=== PATIENT | male | born 1955 | race Two or more races ===

== ENCOUNTER → 2017-03-15 | Emergency (ER) | payer OTHER ==
[~2017-03-15] VITALS: Ht 170.2 cm; Wt 79.4 kg
[~2017-03-15] MED LIST: BELSOMRA PO; CIPRO500 MG PO; CLONAZEPAM2 MG; Intestinex CAP PO; KETO10TA2 PO; NIFEDIPINE XL30 MG PO; OPTIMAL D350000 UNIT; SYNTHROID50 MCG; ZITHROMAX500 MG PO; ZOLPIDEM TARTRA10 MG PO
== END | disposition home or self-care (01) ==
LOC: ER 17:51
DX: R59.0 Localized enlarged lymph nodes (principal)

== ENCOUNTER 2017-09-14 07:34 | Outpatient (CLI) | payer OTHER | END 2017-09-14 07:36 | disposition home or self-care (01) | LOC: SONOGRAMA 07:34 → MAMO-SONO 08:15 | DX: R10.13 Epigastric pain (principal) ==

== ENCOUNTER 2017-09-26 07:59 | Outpatient (CLI) | payer OTHER | END 2017-09-26 17:00 | disposition home or self-care (01) | LOC: TOM 07:59 | DX: R10.9 Unspecified abdominal pain (principal); N23 Unspecified renal colic ==

== ENCOUNTER 2018-03-06 16:31 | Emergency (ER) | payer OTHER ==
[~2018-03-06] VITALS: Ht 170.2 cm; Wt 79.4 kg
[2018-03-11] MEDS ORDERED: XANAX XR0.5 MG (13:06)
== END 2018-03-06 22:45 | disposition home or self-care (01) ==
LOC: ER 16:31
DX: J40 Bronchitis, not specified as acute or chronic (principal); J32.8 Other chronic sinusitis; B34.9 Viral infection, unspecified

== ENCOUNTER → 2018-03-11 | Emergency (ER) | payer OTHER ==
[~2018-03-11] VITALS: Ht 170.2 cm; Wt 76.2 kg
[~2018-03-11] MED LIST changes: +NEURONTIN300 MG; +XANAX XR0.5 MG
== END | disposition left against medical advice (07) ==
LOC: ER 12:48
DX: B34.9 Viral infection, unspecified (principal)

== ENCOUNTER 2018-03-19 14:14 | Emergency (ER) | payer OTHER ==
[~2018-03-19] VITALS: Ht 167.6 cm; Wt 81.6 kg
[~2018-03-19 14:14] MED LIST changes: -NEURONTIN300 MG
[2018-03-19] MEDS ORDERED: NEURONTIN300 MG (14:25)
== END 2018-03-19 17:03 | disposition home or self-care (01) ==
LOC: ER 14:14
DX: G25.2 Other specified forms of tremor (principal); R51 Headache; F06.4 Anxiety disorder due to known physiological condition

== ENCOUNTER 2018-12-27 12:50 | Outpatient (CLI) | payer OTHER ==
[~2018-12-27 12:50] MED LIST changes: +NEURONTIN300 MG
== END 2018-12-27 16:35 | disposition home or self-care (01) ==
LOC: RAD 12:50
DX: R07.89 Other chest pain (principal)

== ENCOUNTER 2019-09-05 12:49 | Outpatient (CLI) | payer OTHER | END 2019-09-05 12:56 | disposition home or self-care (01) | LOC: RAD 12:49 | PROVIDERS: ATTEND Physical Medicine & Rehabilitation | DX: M17.12 Unilateral primary osteoarthritis, left knee (principal); M54.2 Cervicalgia; M75.32 Calcific tendinitis of left shoulder ==

== ENCOUNTER 2019-09-11 07:06 | Outpatient (CLI) | payer OTHER | END 2019-09-11 07:18 | disposition home or self-care (01) | LOC: NUCLEAR 07:06 | PROVIDERS: ATTEND Internal Medicine Cardiovascular Disease | DX: M13.0 Polyarthritis, unspecified (principal) | CPT/HCPCS: 78315; A9503 ==

== ENCOUNTER 2019-09-19 12:52 | Outpatient (CLI) | payer OTHER | END 2019-09-19 12:58 | disposition home or self-care (01) | LOC: SONOGRAMA 12:52 → MAMO-SONO 13:15 | PROVIDERS: ATTEND Physical Medicine & Rehabilitation | DX: M75.112 Incomplete rotator cuff tear or rupture of left shoulder, not specified as traumatic (principal) ==

== ENCOUNTER 2020-02-23 16:25 | Outpatient (CLI) | payer OTHER | END 2020-02-23 16:37 | disposition home or self-care (01) | LOC: RAD 16:25 | PROVIDERS: ATTEND Psychiatry & Neurology Clinical Neurophysiology | DX: M41.87 Other forms of scoliosis, lumbosacral region (principal); M47.20 Other spondylosis with radiculopathy, site unspecified ==

== ENCOUNTER 2020-04-12 13:32 | Emergency (ER) | payer OTHER ==
[~2020-04-12] VITALS: Ht 152.4 cm; Wt 83.5 kg
[2020-04-12] MEDS ORDERED: PEPCID20 MG PO (22:09)
[2020-04-12] MEDS ORDERED: FLAGYL500MG PO (22:09)
[2020-04-12] MEDS ORDERED: DICY20TA PO (22:09)
[2020-04-12] MEDS ORDERED: CIPRO500 MG PO (22:09)
== END 2020-04-12 22:19 | disposition home or self-care (01) ==
LOC: ER 13:32
DX: K57.92 Diverticulitis of intestine, part unspecified, without perforation or abscess without bleeding (principal); Z03.818 Encounter for observation for suspected exposure to other biological agents ruled out

== ENCOUNTER 2021-06-07 11:29 | Outpatient (CLI) | payer OTHER ==
[~2021-06-07 11:29] MED LIST changes: +DICY20TA PO; +FLAGYL500MG PO; +PEPCID20 MG PO
== END 2021-06-07 11:32 | disposition home or self-care (01) ==
LOC: RAD 11:29
PROVIDERS: ATTEND General Practice
DX: R07.9 Chest pain, unspecified (principal); M25.551 Pain in right hip; M25.552 Pain in left hip

== ENCOUNTER 2021-06-08 10:00 | Outpatient (CLI) | payer OTHER | END 2021-06-08 10:04 | disposition home or self-care (01) | LOC: SONOGRAMA 10:00 | PROVIDERS: ATTEND General Practice | DX: E06.9 Thyroiditis, unspecified (principal) ==

== ENCOUNTER 2022-05-26 13:18 | Outpatient (CLI) | payer OTHER | END 2022-05-26 13:24 | disposition home or self-care (01) | LOC: RAD 13:18 | PROVIDERS: ATTEND General Practice | DX: M54.2 Cervicalgia (principal) ==

== ENCOUNTER 2023-10-31 12:25 | Outpatient (CLI) | payer OTHER | END 2023-10-31 12:33 | disposition home or self-care (01) | LOC: SONOGRAMA 12:25 | PROVIDERS: ATTEND Internal Medicine Gastroenterology | DX: R10.13 Epigastric pain (principal) ==

== ENCOUNTER 2024-02-02 00:03 | Emergency (ER) | payer OTHER ==
[~2024-02-02] VITALS: Ht 175.3 cm; Wt 81.6 kg
[2024-02-02] MEDS ORDERED: HYOSCYAMINE SULFATE 0.125 MG TAB.SUBL SL ONE (03:00)
[2024-02-02 03:15] LABS: HEMATOCRIT 44.1 % (39.0-48.0); HEMOGLOBIN 15.3 g/dL (13-16.00); MEAN CELL VOLUME 91.2 fL (80.0-100.00); MEAN CORPUSCULAR HEMOGLOBIN 31.6 pg (27.00-32.0); MEAN CORPUSCULAR HGB CONC 34.7 g/dl (32.0-36.0); PLATELET COUNT 183 K/uL (150-450); RED BLOOD COUNT 4.84 M/uL (4.00-6.00); RED CELL DISTRIBUTION WIDTH 13.1 % (11.5-14.5)
== END 2024-02-02 04:52 | disposition home or self-care (01) ==
LOC: ER 00:05
DX: R14.3 Flatulence (principal); R14.1 Gas pain; R14.2 Eructation; Z88.0 Allergy status to penicillin

== ENCOUNTER 2024-04-09 07:06 | Outpatient (CLI) | payer OTHER | END 2024-04-09 07:07 | disposition home or self-care (01) | LOC: NUCLEAR 07:06 | PROVIDERS: ATTEND Internal Medicine Gastroenterology | DX: K30 Functional dyspepsia (principal) | CPT/HCPCS: 78264; A9541 ==

== ENCOUNTER 2024-07-08 12:19 | Emergency (ER) | payer OTHER ==
[~2024-07-08] VITALS: Ht 170.2 cm; Wt 85.7 kg
[2024-07-08] MEDS ORDERED: ECOTRIN81 MG (13:31)
[2024-07-08] MEDS ORDERED: PANTOPRAZOLE SO40 M2 PO (13:32)
[2024-07-08] MEDS ORDERED: ATORVASTATIN CA10 MG PO (13:33)
[2024-07-08 14:52] LABS: HEMATOCRIT 45.4 % (39.0-48.0); HEMOGLOBIN 15.2 g/dL (13-16.00); MEAN CELL VOLUME 91.7 fL (80.0-100.00); MEAN CORPUSCULAR HEMOGLOBIN 30.6 pg (27.00-32.0); MEAN CORPUSCULAR HGB CONC 33.4 g/dl (32.0-36.0); PLATELET COUNT 151 K/uL (150-450); RED BLOOD COUNT 4.95 M/uL (4.00-6.00)
[2024-07-08 15:12] LABS: INR 0.99; PARTIAL THROMBOPLASTIN TIME 28.4 SECONDS (22.0-34.0); PROTHROMBIN TIME 10.8 SECONDS (9.0-11.5)
[2024-07-08 15:21] LABS: ALBUMIN 3.5 gm/dL (3.4-5.0); BILIRUBIN TOTAL 1.06 mg/dL (0.3-1.2); CALCIUM 9.5 mg/dL (8.5-10.1); CREATININE SERUM 1.2 mg/dL (0.70-1.30); GFR 60.39; GLOBULINA 4.2 G/DL (2.4-3.5); POTASSIUM 4.34 mEq/L (3.5-5.1); TOTAL PROTEIN 7.7 gm/dL (6.4-8.2)
== END 2024-07-08 19:05 | disposition home or self-care (01) ==
LOC: ER 12:20
PROVIDERS: Emergency Medicine
DX: F41.9 Anxiety disorder, unspecified (principal); R07.89 Other chest pain; R53.81 Other malaise; Z88.0 Allergy status to penicillin

== ENCOUNTER 2024-12-24 09:35 | Emergency (ER) | payer OTHER ==
[~2024-12-24] VITALS: Ht 170.2 cm; Wt 81.2 kg
[~2024-12-24 09:35] MED LIST changes: +ATORVASTATIN CA10 MG PO; +ECOTRIN81 MG; +PANTOPRAZOLE SO40 M2 PO
[2024-12-24 10:17] VITALS: BP 120/85; O2SAT 100
[2024-12-24] MEDS ORDERED: ONDANSETRON HCL 2 MG/ML VIAL IV ONE (11:00)
[2024-12-24] MEDS ORDERED: 0.9 % SODIUM CHLORIDE 1,000 ML IV ONE (11:00)
[2024-12-24] MEDS ORDERED: FAMOTIDINE/PF 20 MG/2 ML VIAL IV ONE (11:00)
[2024-12-24] MEDS ORDERED: LOPERAMIDE HCL 2 MG CAPSULE PO ONE ×2 (11:00→12:03)
[2024-12-24] MEDS ORDERED: FAMOTIDINE/PF 20 MG/2 ML VIAL ONE ×2 (11:32→12:03)
[2024-12-24] MEDS ORDERED: ONDANSETRON HCL 2 MG/ML VIAL ONE (12:03)
[2024-12-24 12:16] LABS: BASO % 0.5 % (0.1-1.2); EOS # 0.11 (0.04-0.54); EOS % 1.9 % (0.7-7.0); LYMPH # 2.01 (1.18-3.74); LYMPH % 35.6 % (19.3-53.1); MEAN PLATELET VOLUME 11.10 fl (9.4-12.4); MONO # 0.68 (0.24-0.82); MONO % 12.0 % (4.7-12.5); NEUT # 2.80 (1.56-6.13); NEUT % 49.6 % (34.0-71.1); RED CELL DISTRIBUTION WIDTH 12.3 % (11.6-14.4)
[2024-12-24 12:54] LABS: ALT/SGPT 26.0 U/L (12-78); AST/SGOT 17.0 U/L (15-37); BILIRUBIN TOTAL 0.82 mg/dL (0.3-1.2); BUN CREA RATIO 13.0 (7.0-25.0); CREATININE SERUM 1.37 mg/dL (0.70-1.30); GFR 51.83; GLOBULINA 4.2 G/DL (2.4-3.5); GLUCOSE FASTING 97.0 mg/dL (65-100); OSMOLALITY SERUM 283.0 MOSM/KG (275-295)
[2024-12-24 13:07] LABS: COVID-19 AG NEGATIVE (NEGATIVE)
[2024-12-24 13:28] LABS: URINE APPEARANCE Clear; URINE BILIRRUBIN Small (NEGATIVE); URINE BLOOD Moderate; URINE COLOR Dark Yellow; URINE GLUCOSE Negative (NEGATIVE); URINE KETONE Trace (NEGATIVE); URINE LEUKOCYTE Trace; URINE NITRATE Negative; URINE PROTEIN 30 (NEGATIVE); URINE UROBILINOGEN 1.0 E.U./dl
[2024-12-24 13:31] LABS: URINE BACTERIA 8.3 uL (0.0-1933); URINE CAST 5.57 uL (0.0-1.40); URINE EPITHELIAL CELLS 21.8 uL (0.0-38.8); URINE RBC 38.2 uL (0.0-20.8); URINE WBC 9.0 uL (0.0-23.2)
[2024-12-24 13:48] LABS: URINE MUCUS MODERATE
[2024-12-24] MEDS ORDERED: DICY20TA PO (14:25)
[2024-12-24] MEDS ORDERED: INTESTINEX680 M1 PO (14:25)
== END 2024-12-24 14:49 | disposition home or self-care (01) ==
LOC: ER 09:35
DX: A05.9 Bacterial foodborne intoxication, unspecified (principal); Z88.0 Allergy status to penicillin; E03.8 Other specified hypothyroidism; F41.8 Other specified anxiety disorders; Z20.822 Contact with and (suspected) exposure to COVID-19
CPT/HCPCS: 36415; 96365; 96366; 99282; J2405; J3490; J7030